=== PATIENT | male | born 1945 | race Caucasian/White ===

== ENCOUNTER → 2021-03-04 | Outpatient (CLI) | payer MEDICARE | LOC: KOH-I 13:17 | DX: R91.1 Solitary pulmonary nodule (principal) | CPT/HCPCS: 71250 ==

== ENCOUNTER → 2021-06-11 | Day surgery (SDC) | payer MEDICARE ==
[~2021-06-11] MED LIST: ALDACTONE 25MG25 MG PO; ALFUZOSIN HCL E10 MG PO; AMLODIPINE BESY10 MG PO; CLARITIN 10MG T10 MG PO; COREG 12.5MG12.5 MG PO; COZAAR 25MG TAB25 MG PO; DITROPAN XL 5 MG5 MG PO; FAMOTIDINE20 MG PO; SULFAMETHOXAZO1 EACH PO
== END | disposition home or self-care (01) ==
LOC: OR 08:30
DX: R31.0 Gross hematuria (principal); N40.1 Benign prostatic hyperplasia with lower urinary tract symptoms; N13.8 Other obstructive and reflux uropathy; R35.0 Frequency of micturition; R35.1 Nocturia; R39.14 Feeling of incomplete bladder emptying; N32.9 Bladder disorder, unspecified; N41.9 Inflammatory disease of prostate, unspecified; I12.9 Hypertensive chronic kidney disease with stage 1 through stage 4 chronic kidney disease, or unspecified chronic kidney disease; N18.30 Chronic kidney disease, stage 3 unspecified; Z79.899 Other long term (current) drug therapy; Z91.048 Other nonmedicinal substance allergy status; Z91.040 Latex allergy status; Z20.822 Contact with and (suspected) exposure to COVID-19; Z87.01 Personal history of pneumonia (recurrent); Z87.891 Personal history of nicotine dependence
CPT/HCPCS: J7040; J7120; U0002

== ENCOUNTER → 2021-06-18 | Day surgery (SDC) | payer MEDICARE ==
[~2021-06-18] VITALS: Ht 167.6 cm; Wt 122.5 kg
== END | disposition home or self-care (01) ==
LOC: OR 07:18
DX: C67.9 Malignant neoplasm of bladder, unspecified (principal); N40.1 Benign prostatic hyperplasia with lower urinary tract symptoms; N13.8 Other obstructive and reflux uropathy; R33.8 Other retention of urine; R35.0 Frequency of micturition; R39.14 Feeling of incomplete bladder emptying; R35.1 Nocturia; R31.9 Hematuria, unspecified; I12.9 Hypertensive chronic kidney disease with stage 1 through stage 4 chronic kidney disease, or unspecified chronic kidney disease; N18.30 Chronic kidney disease, stage 3 unspecified; Z79.899 Other long term (current) drug therapy; Z91.040 Latex allergy status; Z91.09 Other allergy status, other than to drugs and biological substances; Z20.822 Contact with and (suspected) exposure to COVID-19; Z87.01 Personal history of pneumonia (recurrent); Z87.891 Personal history of nicotine dependence
CPT/HCPCS: C1769; J1100; J1956; J2001; J2405; J2704; J2710; J3010; J7030; J7120

== ENCOUNTER 2021-06-25 00:25 | Emergency (ER) | payer MEDICARE | END 2021-06-25 03:06 | disposition home or self-care (01) | LOC: ER1 00:25 | DX: R39.198 Other difficulties with micturition (principal); I10 Essential (primary) hypertension; Z85.51 Personal history of malignant neoplasm of bladder | CPT/HCPCS: 51702; 81001; 87086; 99283 ==

== ENCOUNTER 2021-07-05 07:33 | Emergency (ER) | payer MEDICARE | END 2021-07-05 08:51 | disposition home or self-care (01) | LOC: ER1 07:33 | DX: N40.1 Benign prostatic hyperplasia with lower urinary tract symptoms (principal); R33.8 Other retention of urine | CPT/HCPCS: 51701; 99283 ==

== ENCOUNTER 2021-08-12 07:33 | Emergency (ER) | payer MEDICARE ==
[2021-08-12] MEDS ORDERED: KEFLEX750 MG PO (09:30)
== END 2021-08-12 09:49 | disposition home or self-care (01) ==
LOC: ER1 07:33
DX: R33.9 Retention of urine, unspecified (principal); I12.9 Hypertensive chronic kidney disease with stage 1 through stage 4 chronic kidney disease, or unspecified chronic kidney disease; N18.9 Chronic kidney disease, unspecified
CPT/HCPCS: 51702; 81001; 87086; 99283

== ENCOUNTER → 2021-09-08 | Outpatient (CLI) | payer MEDICARE ==
[~2021-09-08] MED LIST changes: +KEFLEX750 MG PO
== END ==
LOC: LBRF 15:56
DX: R31.9 Hematuria, unspecified (principal)
CPT/HCPCS: 87086

== ENCOUNTER 2021-11-09 23:47 | Emergency (ER) | payer MEDICARE ==
[2021-11-10] MEDS ORDERED: DOXYCYCLINE MO100 MG PO (00:43)
== END 2021-11-10 00:47 | disposition home or self-care (01) ==
LOC: ER1 23:47
DX: N39.0 Urinary tract infection, site not specified (principal); R33.9 Retention of urine, unspecified; I10 Essential (primary) hypertension
CPT/HCPCS: 51702; 81001; 87086; 99283

== ENCOUNTER 2021-11-13 15:44 | Emergency (ER) | payer MEDICARE ==
[~2021-11-13 15:44] MED LIST changes: +DOXYCYCLINE MO100 MG PO
== END 2021-11-13 16:27 | disposition home or self-care (01) ==
LOC: ER1 15:44
DX: Z46.6 Encounter for fitting and adjustment of urinary device (principal); I10 Essential (primary) hypertension
CPT/HCPCS: 99283

== ENCOUNTER 2021-12-04 06:40 | Emergency (ER) | payer MEDICARE | END 2021-12-04 08:39 | disposition left against medical advice (07) | LOC: ER1 06:40 | DX: R33.9 Retention of urine, unspecified (principal); R31.9 Hematuria, unspecified; N18.9 Chronic kidney disease, unspecified ==

== ENCOUNTER → 2022-03-23 | Day surgery (SDC) | payer MEDICARE ==
[~2022-03-23] MED LIST changes: +HYDROCODON-ACE1 EAC4 PO; +TYLENOL325 M1 PO
== END | disposition home or self-care (01) ==
LOC: OR 06:51
DX: C67.9 Malignant neoplasm of bladder, unspecified (principal); C61 Malignant neoplasm of prostate; K21.9 Gastro-esophageal reflux disease without esophagitis; I10 Essential (primary) hypertension; E78.5 Hyperlipidemia, unspecified; Z91.040 Latex allergy status; Z87.891 Personal history of nicotine dependence; Z79.899 Other long term (current) drug therapy
CPT/HCPCS: 71045; 77001; C1769; C1788; J0690; J1100; J1885; J2001; J2405; J2704; J7040; J7120

== ENCOUNTER 2022-03-25 12:04 | Emergency (ER) | payer MEDICARE ==
[2022-03-25 14:22] LABS: HEMOGLOBIN 13.2 gm/dl (14.0-17.5); RED BLOOD COUNT 4.57 M/UL (4.20-5.50); WHITE BLOOD COUNT 9.2 K/UL (4.5-11.0)
== END 2022-03-25 18:10 | disposition home or self-care (01) ==
LOC: ER1 12:04
PROVIDERS: Physician Assistant Medical
DX: R00.1 Bradycardia, unspecified (principal); I12.9 Hypertensive chronic kidney disease with stage 1 through stage 4 chronic kidney disease, or unspecified chronic kidney disease; N18.30 Chronic kidney disease, stage 3 unspecified
CPT/HCPCS: 71045; 80053; 82550; 82553; 84439; 84443; 84484; 85025; 93005; 99284

== ENCOUNTER → 2022-06-14 | Outpatient (CLI) | payer MEDICARE ==
[~2022-06-14] MED LIST changes: +ACETAMINOPHEN-1 EACH PO; +ATORVASTATIN CA10 MG PO; +BUMETANIDE1 MG PO; -COREG 12.5MG12.5 MG PO; +COREG12.5 MG PO; -COZAAR 25MG TAB25 MG PO; +COZAAR50 MG PO; +FINASTERIDE5 MG PO; +LORATADINE10 MG PO; +OXYBUTYNIN CHLOR5 MG PO
== END ==
LOC: KOH-I 11:06
DX: C61 Malignant neoplasm of prostate (principal); C67.9 Malignant neoplasm of bladder, unspecified; Z51.11 Encounter for antineoplastic chemotherapy; I50.9 Heart failure, unspecified
CPT/HCPCS: 74176